=== PATIENT | male | born 1980 | race Caucasian/White ===

== ENCOUNTER 2020-10-25 06:30 | Emergency (ER) | payer MEDICAID ==
[~2020-10-25] VITALS: Ht 180.3 cm; Wt 86.2 kg
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
[2020-10-25 07:46] LABS: HEMOGLOBIN 13.1 g/dL (13.5-17.5); WHITE BLOOD COUNT (AUTO) 9.6 K/uL (4.3-11.0)
[2020-10-25 07:50] LABS: BASOPHILS % (AUTO) 0.3 % (0.0-2.0); EOSINOPHILS % (AUTO) 1.8 % (0.0-6.0); HEMATOCRIT 38 % (39-51); LYMPHOCYTES # (AUTO) 2.7 K/uL (0.8-4.8); LYMPHOCYTES % (AUTO) 28.5 % (20.0-44.0); MEAN CORPUSCULAR HGB CONC 35 g/dl (31.0-36.0); MEAN CORPUSCULAR VOLUME 95 fL (80-96); MONOCYTES # (AUTO) 0.8 K/uL (0.1-1.30); MONOCYTES % (AUTO) 8.2 % (2.0-12.0); NEUTROPHILS # (AUTO) 5.9 K/uL (1.8-8.9); NEUTROPHILS % (AUTO) 61.2 % (43.0-81.0); PLATELET COUNT (AUTO) 321 K/uL (150-450); RED BLOOD CELL COUNT(AUTO) 3.98 MIL/uL (4.5-6.0)
[2020-10-25 07:53] LABS: CALCIUM, SERUM 7.9 mg/dL (8.5-10.1); CREATININE 0.9 mg/dL (0.6-1.3); POTASSIUM 3.6 mmol/L (3.5-5.1)
[2020-10-25] MEDS ORDERED: MUPI22OI7 MC (08:16)
[2020-10-25] MEDS ORDERED: CEPH500C2 PO (08:16)
[2020-10-25] MEDS ORDERED: CEFTRIAXONE 1 G VIAL IM ONE (08:30)
[2020-10-25] MEDS ORDERED: LIDOCAINE /MPF 1% VIAL 5 ML VIAL ONE (08:47)
[2020-10-25] MEDS ORDERED: CEFTRIAXONE 1 G VIAL ONE (08:47)
--- NOTE | 2020-10-25 08:53 | NUR ---
Patient discharged in stable condition. Written and verbal after care instructions given. Patient verbalizes understanding of instruction.
[2020-10-25 08:55] VITALS: BP 131/75
== END 2020-10-25 08:55 | disposition home or self-care (01) ==
LOC: ER 06:30
DX: L03.116 Cellulitis of left lower limb (principal); T81.49XA Infection following a procedure, other surgical site, initial encounter; Z59.0 Homelessness
CPT/HCPCS: 36415; 73590; 80048; 85025; 93971; 96372; 99285; J0696; J3490

== ENCOUNTER 2020-11-04 13:21 | Emergency (ER) | payer MEDICAID ==
[~2020-11-04] VITALS: Ht 304.8 cm; Wt 86.2 kg
[~2020-11-04 13:21] MED LIST: CEPH500C2 PO; MUPI22OI7 MC
--- NOTE | 2020-11-04 13:35 | NUR ---
called to triage, no answer
--- NOTE | 2020-11-04 13:41 | NUR ---
called NO response
[2020-11-04 14:11] VITALS: BP 154/91
[2020-11-04] MEDS ORDERED: ACETAMINOPHEN ES 500 MG TABLET PO ONE (14:30)
[2020-11-04] MEDS ORDERED: IBUPROFEN 600 MG TABLET PO ONE (14:30)
[2020-11-04] MEDS ORDERED: SULF1TAB48 PO (14:35)
[2020-11-04] MEDS ORDERED: CEPH500C2 PO (14:35)
[2020-11-04] MEDS ORDERED: IBUPROFEN 600 MG TABLET ONE (14:39)
[2020-11-04] MEDS ORDERED: ACETAMINOPHEN ES 500 MG TABLET ONE (14:39)
--- NOTE | 2020-11-04 14:42 | NUR ---
Patient discharged toprevious living condition Refusing offers of custodial and threw list of resources to the floor. Ambulatory in stable condition. Written and verbal after care instructions given. Patient verbalizes understanding of instruction.
== END 2020-11-24 | disposition home or self-care (01) ==
LOC: ER 11-24 15:26
DX: S80.812D Abrasion, left lower leg, subsequent encounter (principal); L08.9 Local infection of the skin and subcutaneous tissue, unspecified; Z59.0 Homelessness; Z79.899 Other long term (current) drug therapy; X58.XXXD Exposure to other specified factors, subsequent encounter